=== PATIENT | male | born 1980 | race Asian ===

== ENCOUNTER 2017-01-28 21:26 | Emergency (ER) | payer OTHER ==
[~2017-01-28] VITALS: Ht 171 cm; Wt 63.0 kg
[2017-01-28 21:27] VITALS: BP 109/71; TEMP 98.8
[2017-01-28 22:06] VITALS: PULSE 84
== END 2017-01-28 22:05 | disposition home or self-care (01) ==
LOC: COL.ER 21:26
DX: S05.11XA Contusion of eyeball and orbital tissues, right eye, initial encounter (principal); W50.0XXA Accidental hit or strike by another person, initial encounter; Y93.67 Activity, basketball